=== PATIENT | male | born 1970 | race Two or more races ===

== ENCOUNTER 2024-09-10 16:54 | Emergency (ER) | payer OTHER, SELFPAY ==
[2024-09-10 17:11] VITALS: BP 121/74; PULSE 69; RESP 18; TEMP 36.6; O2SAT 98; BMI 26.6
--- NOTE | 2024-09-10 17:18 | XR_ITS ---
Examination: CT abdomen with intravenous contrast CT pelvis with intravenous contrast 2-D coronal reconstructions 2-D sagittal reconstructions Date and time of exam:September 10, 2024 1852 hours Comparison September 15, 2023 INDICATIONS: Diagnosis rectal pain 3 days, history loculated pelvic fluid collection extending into the right perineum and surrounding the perianal region on CT abdomen and pelvis September 15, 2023. CTDI: vol (mGy) 7.1 DLP: (mGycm) 437 Technique: Multiple axial sections of the abdomen and pelvis have been obtained. 64 slice high-resolution scanner used. 3 mm axial sections have been obtained, post intravenous injection of 60 cc Isovue 370 2-D sagittal, coronal reconstructions obtained. Low dose protocols were performed. One or more of the following dose reduction techniques were used; automated exposure control, adjustment of the mA and/or KV according to patient size, use of iterative reconstruction technique. Findings: Gallbladder No pancreatic or adrenal mass Bilateral small benign renal cysts Aortic calcification no aneurysmal dilatation Normal appendix Colonic diverticulosis, no diverticulitis Urinary bladder intact No prostatomegaly Mild thickening of the rectal wall Jeny anal inflammatory change with bilateral small perianal abscesses, coronal image 111, each measuring approximately 14 x 4 mm Inflammation extends to the inner gluteal fold on the right IMPRESSION: Small bilateral perianal abscesses as above, suspicious for fistulous tract extending to the right intergluteal fold
--- NOTE | 2024-09-10 17:18 | PD.EDRME ---
Rapid Medical Screening Exam RME Arrival date/time: 09/10/24 16:54 54-year-old male with a history of a perirectal abscess presents to the emergency room with a chief complaint of 10 out of 10 rectal pain, swelling, and drainage x 4 days I have greeted and performed a focused initial assessment of this patient. A comprehensive ED assessment and evaluation of the patient, analysis of all test results, and completion of the medical decision making process will be conducted by additional ED providers. Chief Complaint: General Adult/Misc Complain Time Seen by Provider: 09/10/24 17:07 Vital signs: Vital Signs Temperature 97.8 F 09/10/24 17:11 Pulse Rate 69 09/10/24 17:11 Respiratory Rate 18 09/10/24 17:11 Blood Pressure 121/74 09/10/24 17:11 Pulse Oximetry (%) 98 09/10/24 17:11 Oxygen Delivery Method Room Air 09/10/24 17:11 Vital signs reviewed by provider: Yes
[2024-09-10] MEDS: HYDROcodone/APAP 5/325 TABLET 1 TAB PO (17:28)
[2024-09-10 17:37] LABS: Basophils # (Auto) 0.1 Thou/mm3 (0.0-0.2); Basophils % (Auto) 1 % (0-2.5); Eosinophils # (Auto) 0.1 Thou/mm3 (0.0-0.5); Eosinophils % (Auto) 2 % (0-10); Hematocrit 45.6 % (41.0-53.0); Hemoglobin 15.8 g/dL (13.5-16.0); Immature Granulocytes % (Auto) 0 % (0-0); Lymphocytes # (Auto) 1.8 Thou/mm3 (1.0-4.8); Lymphocytes % (Auto) 20 % (10-50); Mean Corpuscular HGB Conc 34.6 g/dl (31.0-37.0); Mean Corpuscular Hemoglobin 29.6 pg (25.0-35.0); Mean Corpuscular Volume 85 fL (80-100); Monocytes # (Auto) 0.8 Thou/mm3 (0.0-0.8); Monocytes % (Auto) 9 % (0-12); Neutrophils # (Auto) 5.9 Thou/mm3 (1.8-7.7); Neutrophils % (Auto) 69 % (37-80); Nucleated Red Blood Cell % 0 /100 WBC (0); Platelet Count 241 Thou/mm3 (140-440); RDW Standard Deviation 38.6 fL (35.1-43.9); Red Blood Count 5.34 Miln/mm3 (4.50-5.90); White Blood Count 8.6 Thou/mm3 (3.8-10.6)
--- NOTE | 2024-09-10 17:44 | EDNOTE_ITS ---
ED General RME/HPI General Chief complaint: General Adult/Misc Complain Stated complaint: HX. RECTAL ABSCESS; FEELS LIKE IT'S COME BACK Time Seen by Provider: 09/10/24 17:07 Arrival date/time: 09/10/24 16:54 CC: Rectal pain HPI ongoing for the past 3 days with progressive increase in severity. Patient has a history of rectal abscess last one was 1 year ago required surgery at [place]. Patient states it feels the same. Patient states he can feel the ball , when he presses on the rectum. Patient denies fever shortness of breath or difficulty breathing no OTC medicines taken. RME / HPI RME / HPI narrative: 09/10/24 16:54 54-year-old male with a history of a perirectal abscess presents to the emergency room with a chief complaint of 10 out of 10 rectal pain, swelling, and drainage x 4 days I have greeted and performed a focused initial assessment of this patient. A comprehensive ED assessment and evaluation of the patient, analysis of all test results, and completion of the medical decision making process will be conducted by additional ED providers. Related Data Home Medications ?Medication ?Instructions ?Recorded ?Confirmed [id number] 1 cap PO TIDWM 12/04/1911/11 36,000-114,000-180,000 unit capsule,delay rel (Creon) Previous Rx's ?Medication ?Instructions ?Recorded amoxicillin 875 mg-potassium 1 tab PO BID #14 tabs 07/06 clavulanate 125 mg tablet meloxicam 7.5 mg tablet 7.5 mg PO QDAY #10 tabs 07/06 Allergies Allergy/AdvReac Type Severity Reaction Status Date / Time clindamycin Allergy Unknown SWELLING Verified 09/10/24 16:59 AND CHEST PAIN Review of Systems Review of Systems Narrative Review of Systems: GEN: No fever, no chills, no weight loss EYES: No discharge, no visual changes, no pain HEENT: No ear pain, no congestion, no sore throat PULM: No shortness of breath, no cough, no congestion CV: No chest pain, no dyspnea on exertion, no palpitations GI: No nausea, no vomiting, no diarrhea, + rectal pain, no constipation : No frequency, no urgency, no dysuria MUSC/SKEL: No joint pain, no back pain SKIN: No rash PSYCH: No hallucinations, no depression HEME/LYMPH: No easy bleeding or bruising tendencies NEURO: No weakness, no headache ED Exam Narrative Physical exam: [General: In mild discomfort but not in any acute distress Head normocephalic HEENT: Within acceptable limits Neck is supple nontender Chest equal chest rise nontender to palpation Respiratory: Clear to auscultation no wheezes crackles or rubs CV: Rate rhythm is regular no murmurs rubs or clicks Abdomen is soft nontender, in all 4 quadrants. Rectum: No hemorrhoids or fissures. There is a mass approximately 1 cm deep at the 9 o'clock position exquisitely tender firm, no open ulceration, no exudate or oozing Back: No CVA tenderness no spinous process tenderness from cervical spine thoracic and lumbar spine Skin: Intact no petechiae rash induration ulceration or crepitus Extremities: Moving all extremity against resistance cap refill less than 2 seconds neurosensory intact Neuro: Awake alert oriented x3 Glascow coma 15 no focal deficits] Course Quality Measures VTE prophylaxis Orders Category Date Time Status CT Screening NOW Care 09/10/24 17:18 Active Insert IV NOW Care 09/10/24 17:19 Active Saline [Insert IV] NOW Care 09/10/24 17:[address] abdomen pelvis w con Stat Exams 09/10/24 17:18 Completed Blood Culture (Lab) Stat Lab 09/10/24 19:51 Ordered CBC Stat Lab 09/10/24 17:28 Completed CMP [Comprehensive Metabolic Panel] Stat Lab 09/10/24 17:28 Completed Lipase Stat Lab 09/10/24 17:28 Completed UA [Urinalysis] Stat Lab 09/10/24 19:45 Completed Urine Culture Stat Lab 09/10/24 19:45 Received HYDROcodone*/APAP 5/325 [[place] 5/325] Med 09/10/24 17:18 Discontinued 1 tab PO X1 ONE Piper/Tazo 3.375 gm Premix [Zosyn] Med 09/10/24 17:43 Discontinued 3.375 gm in 50 ml IV X1 Vital Signs Vital signs: Vital Signs Temperature 97.8 F 09/10/24 17:11 Pulse Rate 69 09/10/24 17:11 Respiratory Rate 18 09/10/24 17:11 Blood Pressure 121/74 09/10/24 17:11 Pulse Oximetry (%) 98 09/10/24 17:11 Oxygen Delivery Method Room Air 09/10/24 17:11 MDM Patient data External records reviewed:: [facility] previous records Clinical information provided by:: patient Social determinants that could affect healthcare access:: none Patient has the following chronic illnesses:: Perianal abscess 1 year ago How is presenting disease/condition affected by chronic disease/condition?: u neffected by Evaluation data The following diagnostics were reviewed and interpreted by me:: lab results and radiology exam(s) Lab and/or radiology exams considered but not ordered:: CBC shows no acute leukocytosis anemia thrombocytopenia CMP shows no acute electrolyte imbalances renal impairment transaminitis or T. bili elevation CT shows a small bilateral perianal abscess suspicious for fistulous tract they are 14 and 4 mm respectively. This includes a gluteal fold. Interpretation Summary: Patient's case discussed with Dr. Chambers, who recommends antibiotics and follow- up with a colorectal surgeon such as Dr. Amin. Patient is in agreement with this plan will discharge the patient home on antibiotics as a worsening of symptoms he is to return to the emergency room for further evaluation. Medications Medications considered but not ordered:: None Medication administrations:: Medication Administration History Discontinued Medications Hydrocodone Bitart/Acetaminophen (Hydrocodone/Apap 5/325 Tablet) 1 tab PO X1 ONE Stop: 09/10/24 17:19 Last Admin: 09/10/24 17:28 Dose: 1 tab Documented By: Piperacillin/Tazobactam/Dextrose (Zosyn) 3.375 gm in 50 mls @ 100 mls/hr IV X1 ONE Stop: 09/10/24 18:12 None Consultations Consultation(s) initiated? (list below): No Diagnosis Differential Diagnosis ED Complaint MDM: Perianal abscess perirectal abscess fistulous abscess. Most likely diagnosis given after review of the tests above:: Perirectal abscess with possible fistula Admission Indicated Admission indicated?: not indicated Explain why admission is indicated or not indicated:: Stable for outpatient follow-up Admission Request Was there a request for admission?: No Disposition Plan Disposition Plan: Discharge Discharge Attestation Discharge Attestation: The patient and all family members were given an opportunity to ask questions and understood the discharge instructions. Discharge instructions specifically effects, indications for sooner follow up or return to the emergency department, and the expected course of current diagnosis. Patient condition: Stable Medical Decision Making Differential Diagnosis Differential Diagnosis: Perianal abscess perirectal abscess fistulous abscess. Lab Data 09/10/24 17:28 09/10/24 17:28 Labs: Lab Results 09/10/24 09/10/24 Range/Units 17:28 19:45 WBC 8.6 (3.8-10.6) Thou/mm3 RBC 5.34 (4.50-5.90) Miln/mm3 Hgb 15.8 (13.5-16.0) g/dL Hct 45.6 (41.0-53.0) % MCV 85 (80-100) fL MCH 29.6 (25.0-35.0) pg MCHC 34.6 (31.0-37.0) g/dl RDW Std Deviation 38.6 (35.1-43.9) fL Plt Count 241 (140-440) Thou/mm3 Neut % (Auto) 69 (37-80) % Lymph % (Auto) 20 (10-50) % Holt % (Auto) 9 (0-12) % Eos % (Auto) 2 (0-10) % Baso % (Auto) 1 (0-2.5) % Neut # (Auto) 5.9 (1.8-7.7) Thou/mm3 Lymph # (Auto) 1.8 (1.0-4.8) Thou/mm3 Holt # (Auto) 0.8 (0.0-0.8) Thou/mm3 Eos # (Auto) 0.1 (0.0-0.5) Thou/mm3 Baso # (Auto) 0.1 (0.0-0.2) Thou/mm3 Immature Gran # (Auto) 0.00 (0.00-0.00) Thou/mm3 Absolute Nucleated RBC 0.00 (0.00-0.00) Thou/mm3 Immature Gran % 0 (0-0) % Nucleated RBC % 0 (0) /100 WBC Sodium 138 (136-145) mMol/L Potassium 4.3 (3.4-5.1) mMol/L Chloride 103 (98-107) mMol/L Carbon Dioxide 29.4 (20.0-31.0) mMol/L Anion Gap 6 L (7-16) BUN 12 (9-23) mg/dL Creatinine 1.0 (0.6-1.3) mg/dL Estim Creat Clear Calc 83.5 (>60) mL/min eGFR > 60 (60 - ) See Note BUN/Creatinine Ratio 12 (12-20) Ratio Glucose 110 H (74-106) mg/dL Calculated Osmolality 276 (275-295) Calcium 9.5 (8.3-10.6) mg/dL Corrected Calcium 9.5 (8.5-10.1) mg/dL Total Bilirubin 0.5 (0.3-1.2) mg/dL AST 31 (0-34) U/L ALT 28 (10-49) U/L Alkaline Phosphatase 102 (46-116) U/L Total Protein 7.3 (5.7-8.2) gm/dL Albumin 4.5 (3.5-5.0) gm/dL Globulin 2.8 (2.3-3.5) gm/dL Albumin/Globulin Ratio 1.6 (1.2-2.2) Lipase 47 (12-53) U/L Ur Collection Type Clean Catch Urine Color Colorless A (Lt Yel-Yel) Urine Clarity Clear (Clear/Hazy) Urine pH 7.0 (5.0-7.0) Ur Specific Goodwin 1.010 (1.001-1.035) Urine Protein Negative (Neg - Trace) Urine Glucose (UA) Negative (Negative) Urine Ketones Negative (Negative) Urine Blood Negative (Negative) Urine Nitrite Negative (Negative) Urine Bilirubin Negative (Negative) Urine Urobilinogen (Auto) Negative (0.0-1.0) mg/dL Ur Leukocyte Esterase Negative (Negative) Urine RBC 1 (0-3) /hpf Urine WBC 0 (0-5) /hpf Ur Squamous Epith Cells 0 (0-5) /hpf Urine Bacteria None (None) Discharge Plan Plan Patient Disposition: HOME (Self Care) Patient condition on transfer: Stable Prescriptions/Referrals Prescriptions/Med Rec: New amoxicillin-pot clavulanate 875-125 mg tablet 1 tab PO BID Qty: 14 0RF meloxicam 7.5 mg tablet 7.5 mg PO QDAY Qty: 10 0RF No Action Creon 36,000-114,000- 180,000 unit capsule,delayed release(DR/EC) 1 cap PO TIDWM Patient Comments: TAKE 1 CAPSULE BY MOUTH THREE TIMES A DAY WITH MEALS Referrals: Valentina Amin MD [Physician] - In 1 week No Primary/Family,Physician [Primary Care Provider] - In 1 week Problem List Clinical Impression: Perirectal abscess Patient/Caregiver Discharge Instructions Education Materials: Understanding Perianal Abscess, ED Abscess Antibiotic ... Additional Instructions: Take the medications as prescribed, follow-up with the surgeon listed above, use salt sitz bath's if tolerable. If there is a worsening of symptoms in spite of the medications return the emergency room for reevaluation. Print Language: [place] Stand Alone Forms: Michelle Award Info., Work/School Release, Patient Portal Info Letter PA/CORPORATE TRAVEL COUNSELOR Supervising Physician PA/CORPORATE TRAVEL COUNSELOR Supervising Physician: Tomer Sheriff ENP
[2024-09-10 17:54] LABS: Alanine Aminotransferase 28 U/L (10-49); Albumin, Serum 4.5 gm/dL (3.5-5.0); Albumin/Globulin Ratio 1.6 (1.2-2.2); Alkaline Phosphatase 102 U/L (46-116); Anion Gap 6 (7-16); Aspartate Amino Transferase 31 U/L (0-34); BUN/Creatinine Ratio 12 Ratio (12-20); Bilirubin,Total 0.5 mg/dL (0.3-1.2); Blood Urea Nitrogen 12 mg/dL (9-23); Calcium 9.5 mg/dL (8.3-10.6); Calcium (Corrected) 9.5 mg/dL (8.5-10.1); Carbon Dioxide 29.4 mMol/L (20.0-31.0); Chloride 103 mMol/L (98-107); Estimated Creatinine Clearance 83.5 mL/min (>60); Globulin 2.8 gm/dL (2.3-3.5); Glucose 110 mg/dL (74-106); Lipase 47 U/L (12-53); Osmolality,Calculated 276 (275-295); Potassium 4.3 mMol/L (3.4-5.1); Sodium 138 mMol/L (136-145); Total Protein 7.3 gm/dL (5.7-8.2); eGFR > 60 See Note
[2024-09-10 19:39] VITALS: BP 118/70; PULSE 61; RESP 19; TEMP 36.7; O2SAT 95
[2024-09-10 19:52] LABS: Collection Type, Urine Clean Catch; Squamous Epithelial Cell,Urine 0 /hpf (0-5); WBC,Urine 0 /hpf (0-5)
[2024-09-10 19:57] LABS: Bilirubin,Urine Negative (Negative); Blood,Urine Negative (Negative); Clarity,Urine Clear (Clear/Hazy); Color,Urine Colorless (Lt Yel-Yel); Glucose, Urine Negative (Negative); Ketones,Urine Negative (Negative); Leukocyte Esterase,Urine Negative (Negative); Nitrite,Urine Negative (Negative); Protein,Urine Negative (Neg - Trace); RBC,Urine 1 /hpf (0-3); Urobilinogen,Urine Negative mg/dL (0.0-1.0)
[2024-09-10] MEDS: PIPER/TAZO 3.375 GM PREMIX 3.375 GM/50 ML BAG IV (20:27)
[2024-09-10] MEDS: oxyCODONE/APAP 5/325 TABLET 1 TAB PO (21:00)
== END 2024-09-10 21:09 | disposition home or self-care (01) ==
PROVIDERS: Nurse Practitioner Family; Emergency Provider Emergency Medicine
DX: K61.2 Anorectal abscess (principal)
CPT/HCPCS: 36415; 74177; 80053; 81001; 83690; 85025; 87040; 87086; 96365; 99285; A4649; J2543; Q9967; A9270